=== PATIENT | female | born 1995 | race African-American/Black ===

== ENCOUNTER 2016-09-16 13:45 | Emergency (ER) | payer SELFPAY ==
[~2016-09-16] VITALS: Ht 157.5 cm; Wt 46.0 kg
[2016-09-16 13:53] VITALS: TEMP 37.3; Ht 157.5 cm; Wt 46.0 kg
[2016-09-16 14:34] VITALS: O2SAT 100
[2016-09-16 14:52] LABS: BASO % 0.3 %; BASO ABS # 0.02 K/uL (0-0.2); COMPLETE YES; EOS % 0.6 %; HEMATOCRIT 37.4 % (37-47); IG% 0.2 %; LYMPH % 42.4 %; LYMPH ABS # 2.66 K/uL (1.2-3.4); MEAN CELL VOLUME 83.1 fL (80-100); MEAN CORPUSCULAR HEMOGLOBIN 28.4 pg (25-34); MEAN CORPUSCULAR HGB CONC 34.2 g/dl (32-36); MEAN PLATELET VOLUME 11.2 fL (7.4-10.4); MONO % 9.4 %; NEUT % 47.1 %; PLATELET COUNT 242 K/uL (130-400); WHITE BLOOD COUNT 6.27 K/uL (4.8-10.8)
--- NOTE | 2016-09-16 15:01 | DIAGNOSTIC IMAGING REPORT ---
CHEST 2 VIEWS ROUTINE CLINICAL HISTORY: Atypical chest pain, shortness of breath. Back pain. COMPARISON STUDY: No previous studies for comparison. FINDINGS: The cardiac and mediastinal contours are normal. There is no evidence of focal pulmonary consolidation. There is no evidence of failure. No pleural effusions are visualized.[ IMPRESSION: No active disease in the chest. Electronically signed by: Wade Hanna M.D. 09/16/2016 3:00 PM Dictated Date/Time: 09/16/2016 2:59 PM
[2016-09-16 15:02] LABS: ALT/SGPT 15 U/L (12-78); BLOOD UREA NITROGEN 9 mg/dl (7-18); BUN/CREATININE RATIO 11.8 (10-20); CALCIUM 9.2 mg/dl (8.5-10.1); CARBON DIOXIDE 28 mmol/L (21-32); CHLORIDE 104 mmol/L (98-107); CREATININE 0.78 mg/dl (0.60-1.20); GLUCOSE 77 mg/dl (70-99); POTASSIUM 3.8 mmol/L (3.5-5.1); SODIUM 138 mmol/L (136-145)
[2016-09-16 15:12] LABS: ALB/GLOB RATIO 1.1 (0.9-2); ALKALINE PHOSPHATASE 47 U/L (45-117); AST/SGOT 15 U/L (15-37)
[2016-09-16] MEDS ORDERED: IBUP-1050 PO (15:23)
--- NOTE | 2016-09-16 15:30 | EMERGENCY ROOM VISIT NOTE ---
History First contact with patient: 14:02 Chief Complaint: CARDIAC ASSESSMENT Stated Complaint: CHEST PAIN, BACK PAIN, MUSCLE TWITCHING Nursing Triage Summary: PT HERE WITH CHEST AND BACK PAINS SINCE LAST SPRING. WORSE AT NIGHT AND MORNING. STRESS INCREASES PAIN. DENIES ANY SOB History of Present Illness The patient is a 21 year old female who presents to the Emergency Room with complaints of intermittent chest pain for the past one year. The patient states that for the past year, she has had episodes of chest pain occurring almost daily. She reports she has had pain in the center of the chest, pain in the back and twitching of her muscles. She does report she occasionally becomes nauseous, but denies vomiting. The patient reports that when she worries about the symptoms, they tend to worsen. She has been seen by a few providers for this and states that she has previously been told that it was anxiety or gastritis. She did try a course of Prilosec but states that the medication made her symptoms worse and she stopped taking it after 3 days. The patient denies any personal or family history of heart disease. She denies any shortness of breath, palpitations, syncope, fevers or abdominal pain. She reports she is otherwise healthy. Review of Systems A complete 10-point Review of Systems was discussed with the patient, with pertinent positives and negatives listed in the History of Present Illness. All remaining Review of Systems questions can be considered negative unless otherwise specified. Social History Smoking Status: Current Every Day Smoker Current/Historical Medications Scheduled Ibuprofen (Advil), 400 MG PO PRN UD Allergies Coded Allergies: No Known Allergies (Unverified , 09/16/16) Physical Exam Vital Signs Date Time Temp Pulse Resp B/P Pulse Ox O2 Delivery O2 Flow Rate FiO2 09/16/16 15:55 77 16 115/69 96 09/16/16 15:30 77 16 115/69 96 Room Air 09/16/16 15:17 80 09/16/16 14:34 100 Room Air 09/16/16 13:53 37.3 81 16 141/95 95 Room Air Physical Exam VITALS: Vitals are noted on the nurse's note and reviewed by myself. Vital signs stable. GENERAL: This is a 21-year-old female, in no acute distress, nondiaphoretic, well-developed well-nourished. SKIN: Capillary reflex less than 2 seconds. HEENT: Normocephalic. PERRLA. EOMI. Nares patent. Mucous membranes moist. Neck is supple without nuchal rigidity. HEART: Regular rate and rhythm without murmurs gallops or rubs. LUNGS: Clear to auscultation bilaterally without wheezes, rales or rhonchi. ABDOMEN: Positive bowel sounds x 4. Soft, nontender to palpation. MUSCULOSKELETAL: No reproducible chest pain on palpation. NEURO: Patient was alert and oriented to person place and time. Medical Decision & Procedures ER Provider Diagnostic Interpretation: CHEST 2 VIEWS ROUTINE CLINICAL HISTORY: Atypical chest pain, shortness of breath. Back pain. COMPARISON STUDY: No previous studies for comparison. FINDINGS: The cardiac and mediastinal contours are normal. There is no evidence of focal pulmonary consolidation. There is no evidence of failure. No pleural effusions are visualized. IMPRESSION: No active disease in the chest. Laboratory Results 09/16/16 14:20 Red Blood Count 4.50, Mean Corpuscular Volume 83.1, Mean Corpuscular Hemoglobin 28.4, Mean Corpuscular Hemoglobin Concent 34.2, Mean Platelet Volume 11.2, Neutrophils (%) (Auto) 47.1, Lymphocytes (%) (Auto) 42.4, Monocytes (%) (Auto) 9.4, Eosinophils (%) (Auto) 0.6, Basophils (%) (Auto) 0.3, Neutrophils # (Auto) 2.95, Lymphocytes # (Auto) 2.66, Monocytes # (Auto) 0.59, Eosinophils # (Auto) 0.04, Basophils # (Auto) 0.02 09/16/16 14:20 Test 09/16/16 14:20 White Blood Count 6.27 K/uL (4.8-10.8) Red Blood Count 4.50 M/uL (4.2-5.4) Hemoglobin 12.8 g/dL (12.0-16.0) Hematocrit 37.4 % (37-47) Mean Corpuscular Volume 83.1 fL (80-100) Mean Corpuscular Hemoglobin 28.4 pg (25-34) Mean Corpuscular Hemoglobin Concent 34.2 g/dl (32-36) Platelet Count 242 K/uL (130-400) Mean Platelet Volume 11.2 fL (7.4-10.4) Neutrophils (%) (Auto) 47.1 % Lymphocytes (%) (Auto) 42.4 % Monocytes (%) (Auto) 9.4 % Eosinophils (%) (Auto) 0.6 % Basophils (%) (Auto) 0.3 % Neutrophils # (Auto) 2.95 K/uL (1.4-6.5) Lymphocytes # (Auto) 2.66 K/uL (1.2-3.4) Monocytes # (Auto) 0.59 K/uL (0.11-0.59) Eosinophils # (Auto) 0.04 K/uL (0-0.5) Basophils # (Auto) 0.02 K/uL (0-0.2) RDW Standard Deviation 37.9 fL (36.4-46.3) RDW Coefficient of Variation 12.5 % (11.5-14.5) Immature Granulocyte % (Auto) 0.2 % Immature Granulocyte # (Auto) 0.01 K/uL (0.00-0.02) Anion Gap 6.0 mmol/L (3-11) Est Creatinine Clear Calc Drug Dose 82.2 ml/min Estimated GFR () 125.1 Estimated GFR (Non- 107.9 BUN/Creatinine Ratio 11.8 (10-20) Calcium Level 9.2 mg/dl (8.5-10.1) Total Bilirubin 0.7 mg/dl (0.2-1) Aspartate Amino Transf (AST/SGOT) 15 U/L (15-37) Alanine Aminotransferase (ALT/SGPT) 15 U/L (12-78) Alkaline Phosphatase 47 U/L (45-117) Troponin I < 0.015 ng/ml (0-0.045) Total Protein 8.3 gm/dl (6.4-8.2) Albumin 4.3 gm/dl (3.4-5.0) Globulin 4.0 gm/dl (2.5-4.0) Albumin/Globulin Ratio 1.1 (0.9-2) Thyroid Stimulating Hormone (TSH) 1.220 uIu/ml (0.300-4.500) ECG Rate (beats per minute): 83 Rhythm: normal sinus Findings: no acute ischemic change, no ectopy Comparison ECG Date: no prior available Medical Decision Differential diagnosis includes acute coronary syndrome, pulmonary embolism, pneumothorax, pericarditis, myocarditis, endocarditis, anxiety, musculoskeletal pain, GERD, costochondritis, among others. The patient was evaluated as above. Labs were drawn and IV access was obtained. Imaging studies were performed and read by radiology as above. The patient was reassessed multiple times during their stay in the emergency department and remained in stable condition. The patient is a 21-year-old female who presents today complaining of chest pain which has been intermittent over the past one year. Labs revealed leukocytosis, anemia or electrolyte abnormalities. Troponin was not elevated. Thyroid stimulated hormone was within normal limits. EKG was interpreted by myself and showed no acute ischemic changes or ectopy. Chest x-ray was read by radiology and was unremarkable. I do feel that the patient's pain may be related to anxiety. However, there may also be a component of GERD/gastritis. I did recommend she take a trial of Zantac and have close follow-up with her primary care provider. The patient was agreeable to this and will return sooner for any worsening of her current condition or new/concerning symptoms. Based on the patient's presentation, lab results, and imaging studies, I feel the patient is stable for outpatient treatment. The patient's case was reviewed with Dr. Carlson, ED attending physician, who agreed with my assessment and treatment plan. Discharge instructions were reviewed with the patient. The patient verbalized understanding of my assessment and treatment plan and was discharged home in good condition. Impression Primary Impression: Non-cardiac chest pain Departure Information Dispostion Home / Self-Care Condition GOOD Referrals [facility] (PCP) Patient Instructions My [facility] Additional Instructions You have been treated in the Emergency Department for your Non-Cardiac Chest Pain. Laboratory results and Imaging Studies have ruled out any cardiac or pulmonary cause of your chest pain. You should take Zantac (ranitidine) 75 mgs orally 1 time per day for the next 2 weeks. You can find this medicine [id number]. Zantac can help reduce your symptoms. For pain control, you can use the following [id number] medicines (if >12 yo): - Regular strength (325mg/tab) Tylenol (acetaminophen) 2 tabs every 4-6 hours as needed. Do not exceed 12 tablets in a 24 hour period. Avoid taking more than 4 grams (4000 mg) of Tylenol per day. This includes any other sources of acetaminophen you may take on a regular basis. - Regular strength (200 mg/tab) Advil (ibuprofen) 1-2 tabs every 4-6 hours as needed. Do not exceed a dose of 3200 mg per day. You should schedule a follow-up appointment with your Primary Care Provider in 2 -3 days for further evaluation from today's Emergency Department visit. Return to the Emergency Department if your current symptoms worsen despite treatment course outlined above, or if you develop any of the following symptoms : worsening chest pain, associated jaw/arm pain, nausea, dizziness, shortness of breath, bloody cough, or fainting.
[2016-09-16 15:55] VITALS: BP 115/69; PULSE 77; O2SAT 96
== END 2016-09-16 16:02 | disposition home or self-care (01) ==
LOC: C.EDB 13:47
DX: R07.89 Other chest pain (principal); M54.9 Dorsalgia, unspecified; F17.200 Nicotine dependence, unspecified, uncomplicated